=== PATIENT | male | born 1935 | race Caucasian/White ===

== ENCOUNTER → 2016-08-28 | Day surgery (SDC) | payer MEDICARE, OTHER ==
[~2016-08-28] MED LIST: AGGRENOX PO; ALEVE PM CAPLE1 EACH; ALEVE220 M1 PO; AMOXICILLIN PO; ASPIRINEC PO; ATORVASTATIN CA20 MG PO; CENTRUM SILVER PO; DIOVAN PO; FISH OIL 1,2001 CAP PO; FLONASE ALLERG9.9 ML; LEXAPRO PO; LOPID600 MG PO; LORTAB 5/500 TA1 TA1 PO; MUCINEX DM1 TAB.SR . PO; NEXIUM PO; PANTOPRAZOLE SO40 MG PO; PLAVIX PO; PROTONIX PO; TOPROL XL PO; TRICOR145 MG PO; VITAMIN B122500 MCG; VYTORIN 10/40 T1 TAB PO; ZOCOR PO
--- NOTE | ~2016-08-28 | OR ---
Unit #: [id number] #: [id number] Patient: OLY MEJIA [id number] [address] [address] [id number] O MR#: [id number] NAME: OLY MEJIA. ROOM: Date of Procedure: 08/28/2016 Admission Date: 08/28/2016 Surgeon: J Luis Horowitz M.D. : 1935 Attending Physician: J Luis Horowitz M.D. Primary Care Physician: Daniel Prabhakar M.D. OPERATIVE REPORT PREOPERATIVE DIAGNOSES 1. History of colonic polyps. 2. Screening colonoscopy. POSTOPERATIVE DIAGNOSES 1. History of colonic polyps. 2. Screening colonoscopy. PROCEDURE PERFORMED Colonoscopy to cecum. ANESTHESIA Monitored anesthesia care. FINDINGS The patient was found to have a single right-sided diverticulum. No polyps were seen. Mild internal hemorrhoids. SPECIMENS None. COMPLICATIONS None apparent. CONDITION The patient tolerated the procedure well. INDICATIONS FOR PROCEDURE The patient is a 80-year-old white male, who presents at this time for screening colonoscopy. Three years ago, he had a large polyp removed. He presents at this time for evaluation by colonoscopy. DESCRIPTION OF PROCEDURE After obtaining informed consent, the patient was brought to the endoscopy suite and after adequate monitored anesthesia care, had the colonoscope placed through the anus and slowly advanced to the level of the cecum without difficulty with the lumen always in view. The cecum was normal as was the ileocecal valve. Just beyond the cecum, there was a single diverticulum seen. No other abnormalities were seen in the ascending colon, hepatic flexure, transverse colon, splenic flexure, descending colon, sigmoid colon, or rectum. On retroflexing in the rectum to the anorectal junction, the patient was found to have some mild internal Unit #: [id number] #: [id number] Patient: OLY MEJIA hemorrhoids. The scope was removed without difficulty. The patient tolerated the procedure well and went from the endoscopy suite to the recovery area in stable condition. RECOMMENDATIONS High-fiber diet, lots of liquids, tucks or wipes p.r.n., diverticular sheet given. Dictated by... J Luis Horowitz M.D. ROBBY/viviana TD: 08/29/2016 00:15 JOB #: [id number] [facility] OPERATIVE REPORT Page 1 of 1 X J Luis Horowitz MD PROCEDURE OPERATIVE NOTE
== END | disposition home or self-care (01) ==
LOC: COPS 06:15
DX: Z12.11 Encounter for screening for malignant neoplasm of colon (principal); K57.30 Diverticulosis of large intestine without perforation or abscess without bleeding; K64.8 Other hemorrhoids; I25.10 Atherosclerotic heart disease of native coronary artery without angina pectoris; K21.9 Gastro-esophageal reflux disease without esophagitis; I10 Essential (primary) hypertension; F32.9 Major depressive disorder, single episode, unspecified; M19.90 Unspecified osteoarthritis, unspecified site; Z86.010 Personal history of colon polyps; Z88.8 Allergy status to other drugs, medicaments and biological substances; Z88.6 Allergy status to analgesic agent; Z79.02 Long term (current) use of antithrombotics/antiplatelets; Z79.82 Long term (current) use of aspirin; Z79.899 Other long term (current) drug therapy; Z90.49 Acquired absence of other specified parts of digestive tract; Z95.5 Presence of coronary angioplasty implant and graft; Z98.890 Other specified postprocedural states; Z86.73 Personal history of transient ischemic attack (TIA), and cerebral infarction without residual deficits